=== PATIENT | female | born 1985 ===

== ENCOUNTER → 2017-03-30 | Outpatient (CLI) | payer OTHER | END | disposition home or self-care (01) | LOC: LAB 12:30 | DX: K29.50 Unspecified chronic gastritis without bleeding (principal) ==

== ENCOUNTER → 2017-07-13 | Outpatient (CLI) | payer OTHER | END | disposition home or self-care (01) | LOC: LAB 11:54 | DX: E66.01 Morbid (severe) obesity due to excess calories (principal); K29.40 Chronic atrophic gastritis without bleeding ==